=== PATIENT | male | born 1975 ===

== ENCOUNTER 2018-03-22 12:00 | Inpatient (IN) | payer OTHER ==
[~2018-03-22] VITALS: Ht 182.9 cm; Wt 90.7 kg
[2018-03-22] MEDS ORDERED: MULTI VITAMIN1 EACH PO (13:05)
[2018-03-28] MEDS ORDERED: PERCOCET 5-3251 EACH PO (16:05)
[2018-03-28] MEDS ORDERED: SIMETHICONE80 MG PO (16:05)
[2018-03-28] MEDS ORDERED: ZOFRAN4 MG PO (16:06)
[2018-03-28] MEDS ORDERED: CARAFATE1 GM/10 ML PO (16:06)
[2018-03-28] MEDS ORDERED: POLY119PG PO (16:06)
== END 2018-03-28 17:33 | disposition home or self-care (01) | DRG 328 ==
LOC: SURH 12:00 → O/R 03-27 05:09 → SURH 03-27 10:00
PROVIDERS: ADMIT Surgery
PROC: 0WQF4ZZ Repair Abdominal Wall, Percutaneous Endoscopic Approach (ICD-10-PCS; 2018-03-27)
PROC: 0DV44ZZ Restriction of Esophagogastric Junction, Percutaneous Endoscopic Approach (ICD-10-PCS; 2018-03-27)
PROC: 0DJ08ZZ Inspection of Upper Intestinal Tract, Via Natural or Artificial Opening Endoscopic (ICD-10-PCS; 2018-03-27)
PROC: 0BUT4JZ Supplement Diaphragm with Synthetic Substitute, Percutaneous Endoscopic Approach (ICD-10-PCS; principal; 2018-03-27 10:00)
PROC: 0DS64ZZ Reposition Stomach, Percutaneous Endoscopic Approach (ICD-10-PCS; 2018-03-27 10:00)
DX: K44.9 Diaphragmatic hernia without obstruction or gangrene (principal); K42.9 Umbilical hernia without obstruction or gangrene; R13.19 Other dysphagia; K21.9 Gastro-esophageal reflux disease without esophagitis; K31.89 Other diseases of stomach and duodenum